=== PATIENT | female | born 1970 | race Caucasian/White ===

== ENCOUNTER 2020-08-03 16:30 | Outpatient (REF) | payer BC, MEDICARE, SELFPAY | END 2020-08-03 16:31 | disposition home or self-care (01) | LOC: HO.HOSX 16:30 | PROVIDERS: Visit Provider Orthopaedic Surgery | DX: Z13.89 Encounter for screening for other disorder (principal) ==

== ENCOUNTER 2020-08-04 09:56 | Outpatient (REF) | payer BC, MEDICARE, OTHER, SELFPAY ==
--- NOTE | ~2020-08-04 | XR_ITS ---
EXAMINATION: XR HAND, RIGHT CLINICAL INFORMATION: Pain COMPARISON: Right hand x-rays October 24, 2018 TECHNIQUE: PA, lateral, and oblique views of the right hand in addition to 3 dedicated views of the right thumb. FINDINGS: Visualized portion of the distal radius and ulna demonstrate no fracture. Carpal rows are well aligned. Again appreciated are moderate degenerative changes of the first carpal metacarpal joint. There is slight lateral subluxation of the first metacarpal. There has been interval development of a few erosions involving the first carpal metacarpal joint with likely subtle erosion involving the base of the second metacarpal. MCP and IP joints are relatively well-maintained diffusely. XR/XR hand RT min 3V IMPRESSION: Interval worsening in moderate degenerative changes of the first carpal metacarpal joint.
== END 2020-08-04 09:57 | disposition home or self-care (01) ==
LOC: HO.HOSX 09:56
PROVIDERS: PCP Internal Medicine; Visit Provider Orthopaedic Surgery
DX: M79.641 Pain in right hand (principal); M18.11 Unilateral primary osteoarthritis of first carpometacarpal joint, right hand
CPT/HCPCS: 20600; 73130; J1020

== ENCOUNTER → 2020-11-02 12:25 | Outpatient (BNVA) | payer BC, MEDICARE, SELFPAY | PROVIDERS: Visit Provider Physician Assistant | DX: M18.11 Unilateral primary osteoarthritis of first carpometacarpal joint, right hand (principal) | CPT/HCPCS: 99212 ==

== ENCOUNTER → 2020-12-23 09:42 | Outpatient (BNVA) | payer BC, MEDICARE, SELFPAY | PROVIDERS: Visit Provider Orthopaedic Surgery | DX: M18.11 Unilateral primary osteoarthritis of first carpometacarpal joint, right hand (principal) | CPT/HCPCS: 99212 ==

== ENCOUNTER 2021-01-14 05:59 | Day surgery (SDC) | payer BC, MEDICARE, SELFPAY ==
[2021-01-08 10:07] VITALS: BMI 24.9
--- NOTE | 2021-01-13 12:42 | P.CONAN_ITS ---
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 (Acute) Leg cramps (Acute) Keratoderma (Acute) Fibromyalgia (Acute) PCOS (polycystic ovarian syndrome) (Acute) Migraine (Acute) Female stress incontinence (Acute) Bipolar disorder (Acute) Acquired hypothyroidism (Acute) Dyslipidemia (Acute) Past Medical History Medical History Acquired hypothyroidism Alcoholism Bilateral finger arthralgia Bipolar disorder 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 Daughter No problems noted. Surgical History Surgical History H/O gastric bypass History of abdominal surgery History of section History of esophagogastroduodenoscopy (EGD) History of mammogram History of pubovaginal sling History of tubal ligation Social History Social History Alcohol intake: never Advance Directives Information Provided: No Advance Directives on File: No Current occupational status: disabled Current occupation: rt handed Meds Allergies Allergy/AdvReac Type Severity Reaction Status Date / Time No Known Allergies Allergy Verified 01/14/21 06:15 [No Known Allergies*] Home Medications Medication Instructions Recorded Confirmed Last Taken Type clonazepam 0.5 mg tablet 0.5 mg PO BEDTIME PRN tab 04/16/20 07/15/20 Unknown History clonidine HCl 0.1 mg tablet 0.1 mg PO BID PRN 04/16/20 07/15/20 Unknown History dextroamphetamine-amphetamine 30 1 tab PO TID 04/16/20 07/15/20 Unknown History mg tablet escitalopram oxalate 20 mg tablet 20 mg PO DAILY 04/16/20 07/15/20 01/14/21 05:00 History hydroxyzine pamoate 50 mg capsule 50 mg PO TID PRN 04/16/20 07/15/20 Unknown History lithium carbonate 300 mg 300 mg PO .COMPLEX PRN tab 07/15/20 07/15/20 Unknown History tablet,extended release Exam Exam Date and Time: January 13, 2021 1242 Height,Weight and Vital Signs: Height 5 ft 4 in Weight 65.771 kg Airway Adult Head Mouth w/Numbe Teeth: 1. loose 2. 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 Daughter No problems noted. Family history of problems with anesthesia: No Surgical History Surgical History H/O gastric bypass History of abdominal surgery History of section History of esophagogastroduodenoscopy (EGD) History of mammogram History of pubovaginal sling History of tubal ligation History of Problems with Anesthesia: No Social History Social History Alcohol intake: never Advance Directives Information Provided: No Advance Directives on File: No Current occupational status: disabled Current occupation: rt handed Meds Allergies Allergy/AdvReac Type Severity Reaction Status Date / Time No Known Allergies Allergy Verified 01/14/21 06:15 [No Known Allergies*] Home Medications Medication Instructions Recorded Confirmed Last Taken Type clonazepam 0.5 mg tablet 0.5 mg PO BEDTIME PRN tab 04/16/20 07/15/20 Unknown History clonidine HCl 0.1 mg tablet 0.1 mg PO BID PRN 04/16/20 07/15/20 Unknown History dextroamphetamine-amphetamine 30 1 tab PO TID 04/16/20 07/15/20 Unknown History mg tablet escitalopram oxalate 20 mg tablet 20 mg PO DAILY 04/16/20 07/15/20 01/14/21 05: 00 History hydroxyzine pamoate 50 mg capsule 50 mg PO TID PRN 04/16/20 07/15/20 Unknown History lithium carbonate 300 mg 300 mg PO .COMPLEX PRN tab 07/15/20 07/15/20 Unknown History tablet,extended release Exam Airway Mallampati Class: I TM Dist: >3cm Neck ROM: Full Adult Head Mouth w/Numbe Teeth: 1. loose 2. loose Loose/Missing/Broken Teeth: Yes (poor dentition, ) Assessment and Plan Assessment Anesthesia Assessment: Anesthesia Plan Discussed Final Anesthetic Review Family History of Problems with Anesthesia: No History of Problems with Anesthesia: No NPO: Yes ASA Class: II Final Preanesthetic Review: No Changes in Pt Med Stat, Meds/Allgs Chart Reviewed, Consent Obtained/Reviewed and Anes Risks/Benef Reviewed Patient Risk: Low Procedure Risk: Low Anesthetic Plan Anesthetic Plan: GA Disposition: Standard PACU
[2021-01-14] VITALS (7 sets, daily range): BP systolic 121–141; BP diastolic 58–81; PULSE 73–94; RESP 16–20; TEMP 36.6; O2SAT 95–100
--- NOTE | ~2021-01-14 | FL_ITS ---
EXAMINATION: XR FLUOROSCOPY WITH IMAGES CLINICAL INFORMATION: Arthroplasty basal joint of thumb. COMPARISON: Previous x-ray of the right hand July 2020 TECHNIQUE: Fluoroscopy performed by Dr. Rivka Skaggs Fluoroscopy time: 21 seconds DAP: [id number] uGycm2 Images: 4 FINDINGS: Images demonstrate 2 K-wires across the 1st NURSING HOME joint of the right hand and osteotomy. FL/FL guidance in OR IMPRESSION: Fluoroscopic guidance for arthroplasty of the 1st NURSING HOME joint of the right hand.
[2021-01-14] MEDS: Lactated Ringers 1,000 ML 100 ML IVCONT (06:34)
--- NOTE | 2021-01-14 07:48 | MHC.SHP ---
Pre-Procedural Eval Section A Date of Service: 01/14/21 The patient is an INPATIENT: No Changes since office visit: No Cold of Flu in the past 2 weeks, No New Medical Problems, No Changes in Medication and No Patient answered all questions The History & Physical has been completed within 30 days and I have reviewed it.: Yes Section B Chief Complaint: osteoarthritis Allergies: Allergies Allergy/AdvReac Type Severity Reaction Status Date / Time No Known Allergies Allergy Verified 01/14/21 06:15 [No Known Allergies*] Plan I have reviewed the history and physical and performed a pertinent physical examination on my patient. No changes have occurred unless specified.
--- NOTE | 2021-01-14 07:49 | P.OP_ITS ---
Operative Note Operative Note Date of Service: 01/14/21 Narrative: Operative Note Narrative: Preop diagnosis: 1. Right basal joint osteoarthritis Postop diagnosis: Same Procedure: 1. Right basal joint arthroplasty with rashid trapezii ectomy and ligament reconstruction tendon interposition with a slip of APL tendon Surgeon: Rivka Skaggs MD Anesthesia: Mac plus regional block Findings: Right basal joint osteoarthritis Implants: 0.045 K-wires x2 Tourniquet time: 90 minutes EBL: 5.0 ml Specimen: None Drains: None Complications: None Disposition: Brought to the recovery room in stable condition Plan: Follow-up in 10-14 days for wound check, suture removal and to postop radiographs Place into a short-arm thumb spica cast. Anticipate K-wire removal at 4 weeks postop with same-day appointment for OT hand therapy for a custom thermoplastic hand based thumb spica splint and hand therapy Indications: The patient is 50 years old with right basal joint osteoarthritis. The risks and benefits of operative treatment, including but not limited to risk of damage to blood vessels, nerves, tendons, infection, recurrence, persistent pain or numbness, incomplete resolution of preoperative symptoms, or need for further surgery were discussed with the patient and they wished to proceed with surgery. Procedure: Once consent was obtained patient was brought back to the operating suite and placed in the operating table in a supine position. A regional block was performed by the anesthesia team. Perioperative antibiotics and anesthesia was administered by the anesthesia team. A tourniquet was applied to the proximal aspect of the right upper extremity and the limb was prepped and draped in a standard surgical fashion. The limb was elevated exsanguinated with Esmarch bandage and the tourniquet inflated to 250 mm of mercury for a total tourniquet time of 90 minutes. A 4 cm longitudinal incision was made over the dorsal aspect of the basal joint of the right thumb extending proximally over the 1st dorsal compartment. The i ncision was made through the skin to the subcutaneous tissues using a 15. Blade. I dissected down to the level of the abductor pollicis longus and extensor problems this brevis tendons with care being taken to protect the branches of the superficial radial nerve. The basal joint was entered through the interval between the APL and EPB tendons, and the base of the 1st metacarpal and the distal aspect of the trapezium were exposed. Two baby Bhupinder retractorswere placed around the base of the 1st metacarpal and a bone saw was used to make a transverse cut through the base of the 1st metacarpal removing sliver of bone. The distal aspect of the trapezium was then similarly mobilized, 2 baby Bhupinder retractors placed, and the distal half of the trapezium removed after a transverse cut was made using a small bone saw. The FCR tendon was seen passing through the floor of the interval. At this point my attention was turned to the 1st dorsal compartment. It was exposed over the radial styloid. A slip of the abductor pollicis longus tendon was selected and cut proximally and withdrawn back to the interval and its attachment at the base of the 1st metacarpal. It was then secured to the base of the interval and the FCR tendon using some 3-0 Ethibond suture. An anchovy was then created from the remaining APL tendon and placed into the interval. It was secured using 3-0 Ethibond sutu re material. Two 0.045 K-wires were then placed from distal to proximal across the interval maintaining the space in the interval. Once satisfied with their position on fluoroscopic images they were cut, bent and had pin caps applied. At this point the wound was again irrigated with normal saline. The interval was closed using 3-0 Ethibond and 4-0 Vicryl suture. At this point the tourniquet was deflated and hemostasis obtained with a brief period of local pressure and bipolar electrocautery. The wound was copiously irrigated with normal saline. The subcutaneous layer was closed with 4-0 Vicryl suture, and the skin edges were reapproximated with 5-0 Prolene suture. The wound was infiltrated with some 1% lidocaine with epinephrine for postop pain control and a sterile dressing and thumb spica splint were applied. The patient appears to have tolerated the procedure well and with no complications. All digits were well vascularized at the conclusion of the case.
== END 2021-01-14 11:56 | disposition home or self-care (01) ==
PROVIDERS: PCP Internal Medicine; Visit Provider Orthopaedic Surgery
PROC: (CPT 25447; principal; 2021-01-14 07:30)
DX: M18.11 Unilateral primary osteoarthritis of first carpometacarpal joint, right hand (principal); Z87.820 Personal history of traumatic brain injury
CPT/HCPCS: 25447; J0690; J1100; J2250; J2405; J3010

== ENCOUNTER 2021-01-26 09:15 | Outpatient (REF) | payer BC, MEDICARE, SELFPAY ==
--- NOTE | ~2021-01-26 | XR_ITS ---
EXAMINATION: XR HAND, RIGHT CLINICAL INFORMATION: Pain right hand COMPARISON: None TECHNIQUE: PA, lateral, and oblique views of the right hand. FINDINGS: There are 2 pins traversing the first carpometacarpal joint space following surgery for fusion. No additional bony abnormality seen. XR/XR hand RT min 3V IMPRESSION: Postsurgical changes first carpometacarpal joint with dissection and stabilization of joint with with 2 pins.
== END 2021-01-26 09:16 | disposition home or self-care (01) ==
LOC: HO.HOSX 09:15
PROVIDERS: PCP Internal Medicine; Visit Provider Orthopaedic Surgery
DX: M18.11 Unilateral primary osteoarthritis of first carpometacarpal joint, right hand (principal)
CPT/HCPCS: 73130

== ENCOUNTER 2021-02-09 09:55 | Outpatient (REF) | payer BC, MEDICARE, SELFPAY ==
--- NOTE | ~2021-02-09 | XR_ITS ---
EXAMINATION: XR HAND, RIGHT CLINICAL INFORMATION: Pain in the right hand COMPARISON: 01/26/2021 TECHNIQUE: PA, lateral, and oblique views of the right hand. FINDINGS: There is no acute fracture or dislocation. Previous K wires have been removed at the region of the first carpometacarpal joint. There is irregularity of the articular surfaces of the base of the first metacarpal and of the trapezium. There is a gap between the bones. Overall this is likely postoperative in nature. Remaining joint spaces are maintained. The soft tissues are unremarkable. XR/XR hand RT min 3V IMPRESSION: Post intervention changes at the first carpometacarpal joint.
== END 2021-02-09 09:56 | disposition home or self-care (01) ==
LOC: HO.HOSX 09:55
PROVIDERS: Visit Provider Orthopaedic Surgery
DX: L03.011 Cellulitis of right finger (principal); M18.11 Unilateral primary osteoarthritis of first carpometacarpal joint, right hand
CPT/HCPCS: 73130

== ENCOUNTER → 2021-02-16 11:32 | Outpatient (BNVA) | payer BC, MEDICARE, OTHER, SELFPAY | PROVIDERS: Visit Provider Orthopaedic Surgery ==

== ENCOUNTER 2021-03-15 11:00 | Outpatient (RCR) | payer BC, MEDICARE, OTHER, SELFPAY ==
--- NOTE | 2021-02-11 08:10 | MHC.OT.OEV ---
[address] [phone] F: [phone] Occupational Therapy Evaluation Diagnosis: ARTHRITIS OF FIRST CARPOMETACARPAL R HAND Date of Onset: 02/09/20 Date of Surgery: 01/14/21 Attending Provider: Rivka Garza Prescribed Treatment: EVAL AND TREAT, FABRICATE CUSTOM THERMOPLASTIC THUMB SPICA SPLINT IP FREE MD Follow Up Appointment: 03/23/21 History of Current Condition: UNDERWENT Right basal joint arthroplasty with rashid trapezii ectomy and ligament reconstruction tendon interposition with a slip of APL tendon WITH DR GARZA ON 01/14/21 DUE TO ARTHRITIS OF THE CMC JOINT OF THE RIGHT THUMB. K-WIRE REMOVED 01/26/21. CAST REMOVED 02/09/21. 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 PREVIOUSL[place] [employer] [place]. HOBBIES INCLUDE: GARDENING, READING, PLAYING WITH THREE DOGS Living Situation, Family and/or Social Support: LIVES WITH S/O, THREE DOGS Current Level of Function and Occupation Self Care, Employment, Leisure: DIFFICULTIES IN ADLs AND IADLs. S/O ASSISTING WITH MOST IADLs AND SOME DRESSING TASKS. USING NON-DOMINANT HAND FOR TOILETING HYGIENE. Sleep: HX OF SLEEP DIFFICULTIES PRIOR TO SURGERY; DENIES CHANGE IN SLEEPING PATTERN Driving: REPORTS USING L HAND MOSTLY; HAS TURN DIAL FOR SHIFTING INTO GEAR Vision: WFL Balance: WFL Pain Assessment Pain Score: 1-4/10 Pain Scale Used: Numeric (0 - 10) Pain Location and Description: R THUMB, SURGICAL SITE 1/10 AT REST 4/10 WITH USE Aggravating Factors: BUMPING HAND Alleviating Factors: IBUPROPHEN Skin and Soft Tissue Assessment Skin and Soft Tissue: Nail Changes Redness Swelling Scar Tissue Comments: SURGICAL INCISION IS HEALING, DRY. REPORTS NEW NAIL INFECTION WITH SOME REDNESS AT CUTICAL (MD ORDERED ANITIBIOTIC IN OFFICE) Sensory Assessment Temperature: Light Touch: WFL Proprioception: Vibration: Comments: SMALL AREA OF NUMBNESS FROM MCP TO 1ST METACARPAL ON RADIAL ASPECT OF THUMB Edema Assessment Upper Extremity: Right Impaired Lower Extremity: Comments: MILD R THUMB/ THENAR EDEMA CIRCUMFERNCE OF WRIST, DISTAL TO U.S.: R 16.7 CM, L 15.9 CM CIRCUMFERENCE OF IP OF D1: RIGHT 6.8 CM, LEFT 6.6 CM Dexterity Assessment Dexterity: Right Impaired Comments: FUNCTIONAL DEXTERITY TEST: RIGHT 40 SECONDS (MODERATELY FUNCTIONAL), LEFT 24 SECONDS Special Tests Comments: AROM(PROM) Strength Wrist Flexion: R 48, L 68 Extension: R 70, L 70 Ulnar Deviation: R 24, L 54 Radial Deviation: R 8, L 10 Comments: Flexion: Extension: Ulnar Deviation: Radial Deviation: Comments: Thumb Thumb CMC Flexion: Thumb MCP Flexion: R 20, L 60 Thumb IP Flexion: R 28, L 72 Radial Abduction: R 44 Palmar Abduction: R 40 [place] (Kapandji 0-10): Comments: OPPOSITION DEFERRED Digits Index MCP: PIP: DIP: Long MCP: PIP: DIP: Ring MCP: PIP: DIP: Small MCP: PIP: DIP: Comments: Gross Grasp: L 70 Lateral Pinch: L 16 Two-Point Pinch: L 14 Three-Jaw Alex: L 15 Comments: RIGHT DEFERRED Patient Education Primary Language: Com[place] [employer]itor [employer] Required: No Current Knowledge: Understands information with skills for self-management Teaching Method: Demonstration Handouts Verbal Education Needs Identified on Evaluation: ADL's Disease Information Equipment Use Exercise Pain Safety How did patient/family demonstrate learning? Patient demonstrates Patient verbalizes Barriers to Learning: None Readiness for Learning: Accepting Who was educated? Patient Comments: Plan of Care Assessment: BRITT IS [age] WEE[age], F[age] DAYS S/P BASAL JOINT ARTHROPLASTY (DOS 01/14/21). SHE HAD HER CAST REMOVED IN THE ORTHOPEDIC OFFICE THIS AFTERNOON WITH ORDERS FOR OT TO EVALUATE, TREAT AND FABRICATE A CUSTOM THUMB SPICA SPLINT. Pt REPORTS LOW PAIN AND EMERGING ABILITY TO PARTICIPATE IN BADLs WITH DOMINANT RIGHT UE. SHE HAS A SUPPORTIVE S/O AT HOME WHO HAS BEEN ASSISTING WITH IADLs. A 64% LIMITATION IS REPORTED PER THE QUICK DASH ASSESSMENT. ONGOING SKILLED OT IS WARRANTED TO ACHIEVE MAXIMUM FUNCTIONAL LEVEL AND IMPROVE QOL. 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 >30 POUNDS MIN IMPAIRMENT PER THE FUNCTIONAL DEXTERITY TEST IN R HAND INCREASE R WRIST FLEXION TO 60 DEGREES Frequency and Duration: The patient will be seen 2X/WEEK FOR 8 WEEKS Treatment Plan: Therapeutic Exercise Therapeutic Activity Home Exercise Program Splinting Neuro Re-ed Patient Education Desensitization/Sensory Re-ed Edema Control ADL Training Ultrasound NMES Iontophoresis Paraffin Fluidotherapy MHP Cold Packs Joint Mobilization Soft Tissue Mobilization Kinesiotaping Other (see comments) Electronically Signed By: DORITA GREENE/Angelo Reviewed/agree with student documentation: N/A Therapist: Please sign and return to therapist, Thank you for your referral.
--- NOTE | 2021-04-05 08:44 | MHC.OT.DC ---
[address] [phone] F: [phone] Occupational Therapy Discharge Note Provider: Rivka Skaggs Diagnosis: ARTHRITIS OF FIRST CARPOMETACARPAL R HAND Date of Surgery: 01/14/21 Date of Evaluation: 02/11/21 Date of Discharge: 04/05/21 Treatments to Date: 6 Cancellations to Date: 1 No Shows to Date: 3 Discharge Status: Patient Elected to Stop Discharge Summary: MS EWING HAS BEEN SEEN FOR OT SERVICES SHE IS POST OP BASAL JOINT ARTHROPLASTY. SHE WAS PROVIDED WITH A CUSTOM ORTHOSIS AND INSTRUCTED ON WEAR/ CARE AND EDUCATED ON POST OP PRECAUTIONS. BRITT HAD BEEN FOLLOWING HER HEP AND GRADUALLY USING HER DOMINANT RIGHT HAND FOR ADLs AND LIGHT IADLs. Pt CONTACTED THE CORE OFFICE AND REQUESTED TO TRANSITION TO A HOME BASED PROGRAM, DISCONTINUING HER OT SERVICES. SHE REPORTS GOOD UNDERSTANDING OF HER HEP AND POST OP PRECAUTIONS. D/C OT SERVICES. Electronically Signed By: SUKHI CARIAS OTR/L Reviewed/agree with student documentation: N/A Therapist: Please Sign and return to therapist, thank you for your referral.
== END 2021-04-05 08:45 | disposition home or self-care (01) ==
LOC: HO.OT 11:00
PROVIDERS: PCP Internal Medicine; Visit Provider Orthopaedic Surgery
DX: M18.11 Unilateral primary osteoarthritis of first carpometacarpal joint, right hand (principal)
CPT/HCPCS: 29130; 97035; 97110; 97140; 97167; 97530; 97760

== ENCOUNTER → 2021-03-23 08:43 | Outpatient (BNVA) | payer BC, MEDICARE, OTHER, SELFPAY | PROVIDERS: PCP Internal Medicine; Visit Provider Orthopaedic Surgery ==

== ENCOUNTER 2021-08-31 11:41 | Outpatient (REF) | payer OTHER, BC, SELFPAY ==
--- NOTE | ~2021-08-31 | MM_ITS ---
EXAMINATION: MM SCREENING DIGITAL BREAST TOMOSYNTHESIS, BILATERAL CLINICAL INFORMATION: Screening. Asymptomatic. The lifetime risk of breast cancer based on the Tyrer-Cuzick Model is 13%. COMPARISON: Mammography: 04/01/2019, 03/10/2017, 04/13/2015 TECHNIQUE: Digital breast tomosynthesis is performed in both the craniocaudal and mediolateral oblique views along with computer-aided detection (CAD). Synthesized 2D images are generated from the tomosynthesis. FINDINGS: There are scattered areas of fibroglandular density (ACR BI-RADS breast composition Category b). There are no significant masses, abnormal calcifications, or other abnormalities. No developing density. The axilla are unremarkable. There is a dermal lesion again seen overlying posterior inferior left breast. MM/MM tomosynthesis screening BI IMPRESSION: No mammographic evidence of malignancy. ASSESSMENT: BI-RADS 2: Benign RECOMMENDATION: Routine annual mammography screening. This patient's information was entered into a reminder system with a target due date for their next mammogram.
== END 2021-08-31 11:42 | disposition home or self-care (01) ==
LOC: HO.MAMMO 11:41
PROVIDERS: Visit Provider Internal Medicine
DX: Z12.31 Encounter for screening mammogram for malignant neoplasm of breast (principal)
CPT/HCPCS: 77063; 77067

== ENCOUNTER 2022-09-01 11:49 | Outpatient (REF) | payer OTHER, SELFPAY ==
--- NOTE | ~2022-09-01 | MM_ITS ---
EXAMINATION: MM SCREENING DIGITAL BREAST TOMOSYNTHESIS, BILATERAL CLINICAL INFORMATION: Screening. Asymptomatic. The lifetime risk of breast cancer based on the Tyrer-Cuzick Model is 13%. COMPARISON: Mammography: 08/31/2021, 04/01/2019, 03/10/2017 TECHNIQUE: Digital breast tomosynthesis is performed in both the craniocaudal and mediolateral oblique views along with computer-aided detection (CAD). Synthesized 2D images are generated from the tomosynthesis. FINDINGS: There are scattered areas of fibroglandular density (ACR BI-RADS breast composition Category b). There are no significant masses, abnormal calcifications, or other abnormalities. Parenchymal pattern is similar to prior studies. There is no developing density or architectural abnormality. The axilla and skin contours are unremarkable. No significant changes. MM/MM tomosynthesis screening BI IMPRESSION: No mammographic evidence of malignancy. ASSESSMENT: BI-RADS 1: Negative RECOMMENDATION: Routine annual mammography screening. This patient's information was entered into a reminder system with a target due date for their next mammogram.
== END 2022-09-01 11:50 | disposition home or self-care (01) ==
LOC: HO.MAMMO 11:49
PROVIDERS: PCP Internal Medicine; Visit Provider Internal Medicine
DX: Z12.31 Encounter for screening mammogram for malignant neoplasm of breast (principal)
CPT/HCPCS: 77063; 77067

== ENCOUNTER 2022-10-24 21:59 | Emergency (ER) | payer OTHER, MEDICARE, SELFPAY ==
[2022-10-24 22:12] VITALS: BP 120/80; PULSE 102; O2SAT 98
[2022-10-24 22:30] VITALS: BP 150/85; PULSE 90; RESP 16; TEMP 35.6; O2SAT 97
--- NOTE | 2022-10-24 23:00 | PC.NURSE ---
Pt not at the bedside. Left without being seen. Charge nurse aware.
--- NOTE | 2022-10-24 23:07 | ED_ITS ---
HPI - Alcohol General Chief Complaint: ETOH/Substance Use Stated Complaint: crisis, depression, anxiety, per ems Time Seen by Provider: 10/24/22 22:18 Related Data Home Medications Medication Instructions Recorded Confirmed clonazepam 0.5 mg tablet 0.5 mg PO BEDTIME PRN 04/16/20 07/15/20 clonidine HCl 0.1 mg tablet 0.1 mg PO BID PRN 04/16/20 07/15/20 dextroamphetamine-amphetamine 30 1 tab PO TID 04/16/20 07/15/20 mg tablet escitalopram oxalate 20 mg tablet 20 mg PO DAILY 04/16/20 07/15/20 hydroxyzine pamoate 50 mg capsule 50 mg PO TID PRN 04/16/20 07/15/20 lithium carbonate 300 mg 300 mg PO .COMPLEX PRN 07/15/20 07/15/20 tablet,extended release Previous Rx's Medication Instructions Recorded nystatin-triamcinolone 100,000 1 appl topical BID 10 days #30 05/22/20 unit/g-0.1 % topical cream grams levothyroxine 175 mcg tablet 175 mcg PO DAILY #30 tabs 05/28/20 magnesium oxide 400 mg (241.3 mg 400 mg PO DAILY PRN for cramps #30 08/21/20 magnesium) tablet tabs oxybutynin chloride 5 mg 5 mg PO DAILY 30 days #30 tabs 08/21/20 tablet,extended release 24 hr pregabalin 150 mg capsule 150 mg PO BID #60 caps 10/08/20 sulfamethoxazole 800 1 tab PO BID 10 days #20 tabs 01/26/21 mg-trimethoprim 160 mg tablet (Bactrim DS) amoxicillin 875 mg-potassium 1 tab PO Q12H #14 tabs 02/09/21 clavulanate 125 mg tablet (Augmentin) valacyclovir 1 gram tablet 2,000 mg PO Q12H #4 tabs 05/18/21 Allergies Allergy/AdvReac Type Severity Reaction Status Date / Time No Known Allergies Allergy Verified 02/16/21 11:44 [No Known Allergies*] [facility] Past Medical History Medical History Acquired hypothyroidism Alcoholism Bilateral finger arthralgia Bipolar disorder 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 Daughter No problems noted. Social History Social History Alcohol intake: never Advance Directives: No Advance Directives Information Provided: No Current occupational status: disabled Current occupation: rt handed Physical Exam ED Vital Signs: Vital Signs - 24 hr 10/24/22 22:30 Temperature 96.1 F L Pulse Rate 90 Respiratory Rate 16 Blood Pressure 150/85 H Pulse Oximetry 97 Oxygen Delivery Method Room Air BMI result Body Mass Index 30.0 Discharge Plan Discharge Prescriptions: No Action nystatin-triamcinolone 100,000-0.1 unit/g-% cream 1 appl topical BID 10 Days Qty: 30 0RF levothyroxine 175 mcg tablet 175 mcg PO DAILY Qty: 30 3RF oxybutynin chloride 5 mg tablet extended release 24hr 5 mg PO DAILY 30 Days Qty: 30 2RF Rx Instructions: appt needed for further refills magnesium oxide 400 mg (241.3 mg magnesium) tablet 400 mg PO DAILY PRN (Reason: for cramps) Qty: 30 0RF pregabalin 150 mg capsule 150 mg PO BID Qty: 60 0RF valacyclovir 1 gram tablet 2,000 mg PO Q12H Qty: 4 3RF escitalopram oxalate 20 mg tablet 20 mg PO DAILY dextroamphetamine-amphetamine 30 mg tablet 1 tab PO TID hydroxyzine pamoate 50 mg capsule 50 mg PO TID PRN clonidine HCl 0.1 mg tablet 0.1 mg PO BID PRN clonazepam 0.5 mg tablet 0.5 mg PO BEDTIME PRN lithium carbonate 300 mg tablet extended release 300 mg PO .COMPLEX PRN Rx Instructions: 1 tab at 7am, 12n, 3pm, 6pm and 10pm sulfamethoxazole-trimethoprim [Bactrim DS] 800-160 mg tablet 1 tab PO BID 10 Days Qty: 20 0RF amoxicillin-pot clavulanate [Augmentin] 875-125 mg tablet 1 tab PO Q12H Qty: 14 0RF
== END 2022-10-24 23:00 | disposition left against medical advice (07) ==
PROVIDERS: Emergency Provider Emergency Medicine
DX: F32.A Depression, unspecified (principal); F41.9 Anxiety disorder, unspecified; Z87.820 Personal history of traumatic brain injury
CPT/HCPCS: 99281; 99282

== ENCOUNTER 2022-11-26 20:11 | Emergency (ER) | payer OTHER, SELFPAY ==
--- NOTE | ~2022-11-26 | XR_ITS ---
EXAMINATION: XR HAND, RIGHT CLINICAL INFORMATION: Question fracture COMPARISON: 02/09/2021 TECHNIQUE: PA, lateral, and oblique views of the right hand. FINDINGS: There is a fracture through neck of the fifth metacarpal with mild following volar angulation of the distal fragment and some adjacent soft tissue swelling. No additional acute fracture is seen. In comparison to the prior examination there is a flattened appearance of the trapezium, suggesting sequelae of avascular necrosis. There is chronic appearing cortical irregularity at the base of the first metacarpal and adjacent base of the second metacarpal, which may reflect a combination of arthritic and postoperative changes. XR/XR hand RT 2V IMPRESSION: 1. Mildly displaced fracture of the fifth metacarpal neck. 2. Chronic appearing changes near the first carpometacarpal joint as described above, including a flattened appearance of the trapezium which may reflect sequelae of avascular necrosis.
[2022-11-26 20:18] VITALS: BP 137/65; BP 170/80; PULSE 108; PULSE 95; RESP 18; TEMP 36.7; O2SAT 97; O2SAT 98; BMI 22.3
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
== END 2022-11-26 23:10 | disposition home or self-care (01) ==
PROVIDERS: Emergency Provider Internal Medicine; PCP Internal Medicine
DX: S62.336A Displaced fracture of neck of fifth metacarpal bone, right hand, initial encounter for closed fracture (principal); W22.09XA Striking against other stationary object, initial encounter; Y93.9 Activity, unspecified; Y92.9 Unspecified place or not applicable; Y99.9 Unspecified external cause status
CPT/HCPCS: 29125; 73120; 99282; 99283

== ENCOUNTER 2022-11-29 04:56 | Outpatient (REF) | payer OTHER, SELFPAY ==
--- NOTE | ~2022-11-29 | XR_ITS ---
EXAMINATION: XR HAND, RIGHT CLINICAL INFORMATION: Right hand pain COMPARISON: November 1922 TECHNIQUE: PA, lateral, and oblique views of the right hand. FINDINGS: There is no interval change in appearance of boxer's fracture involving 6 metacarpal bone with angulation. Soft tissues are unremarkable. There is flattening of the trapezium as a sequela of avascular necrosis and progress seen with February 2021. There is irregularity of first metacarpal bone with wide gap between bones. Findings are stable. XR/XR hand RT min 3V IMPRESSION: No interval change in appearance of boxer's fracture of fifth metacarpal bone and chronic appearing changes in the first carpometacarpal joint with osteonecrosis of trapezius.
== END 2022-11-29 04:57 | disposition home or self-care (01) ==
LOC: HO.HOSX 04:56
PROVIDERS: Visit Provider Orthopaedic Surgery
DX: S62.336A Displaced fracture of neck of fifth metacarpal bone, right hand, initial encounter for closed fracture (principal)
CPT/HCPCS: 73130; 99212

== ENCOUNTER 2022-11-29 15:13 | Outpatient (AMB) | payer OTHER, SELFPAY ==
--- NOTE | 2022-11-29 15:40 | A.OFFVIS_ITS ---
Intake Intake Visit Reasons: N/P Fracture of the right 5th metacarpal 11/26/22 Intake Note: Eve is a 52 year old right hand dominant female presents today as a new patient for evaluation of her right hand fracture. On Monday she reports that he punched a wall on Monday11/29/22, she was seen at [facility] ED the date of injury. Currently she complains of pain in the ulnar side of the hand, this pain does occasionally radiate up the arm. She has significant swelling of the hand but denies numbness and tingling. Allergies No Known Allergies [No Known Allergies*] Allergy (Verified 02/16/21 11:44) HPI N/P Fracture of the right 5th metacarpal 11/26/22 HPI Details Eve is a 52 year old right hand dominant woman who presents with a right 5th metacarpal fracture. She says she punched a wall on 11/26/22, and was seen in the ED on the same day where she was placed in an ulnar gutter splint. She says she is doing okay today, she has some pain in her finger but this is tolerable. She denies any numbness or tingling. She is currently not working and is on disability. She has a hx of right basal joint arthroplasty by me in 2020, which she says went very well and she denies any pain. 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 Daughter No problems noted. Social History (Updated 11/29/22 @ 15:44 by Jeannette Mckeon CMA) Alcohol intake: never Patient Tobacco Use Status: Current everyday Tobacco user Cigarette Packs Per Day: 0.5 Current occupational status: disabled Current occupation: rt handed Review of Systems Const All systems reviewed & are unremarkable except as noted in HPI and below Physical Exam Const General: no acute distress and alert Orientation/consciousness: patient oriented x3 Neuro General: patient oriented x3 Extrem Other: Evaluation of Right Upper Extremity: The patient is alert, oriented, and in no acute distress Neuro: Median, Ulnar, Radial nerves motor and sensory intact and sensation is normal to the tips of all digits Vascular: Cap refill brisk ROM: With encouragement she could bring her small finger MCP joint to ~70-80 degrees flexion and back into full extension No mal-rotation Mild angular deformity Ecchymosis & swelling No evidence of open injury Tender over the 5th metacarpal neck No tenderness about the basal joint Radiographs: 3 views of the right hand, with attention to the small finger, were taken and viewed by me today in clinic. They show a right 5th metacarpal neck fracture with about 40 degrees of apex dorsal angulation and some mild volar translation.. Psych Appearance: grossly normal Affect: normal affect Attitude: cooperative Office Procedures Fracture Care Details: Fracture [id number] Fracture Billing Code: Fracture Billing Code Assessment & Plan Assessment & Plan (1) Fracture of neck of fifth metacarpal bone of right hand: Code(s): S62.336A - Displaced fracture of neck of fifth metacarpal bone, right hand, initial encounter for closed fracture Plan Assessment & Plan: 1. Right 5th metacarpal neck fracture After punching a wall, DOI: 11/26/22 Splinted in ED on 11/26/22 I educated her about this condition I discussed operative and non-operative treatment options I believe we can manage this non-operatively She was fitted for a velcro wrist splint, and her small and ring fingers were phil-taped to allow for active range of motion. I showed her exercises to include active MCP flexion. I discussed activity modification, she is to avoid any impact activities, activities prone to falling, or gripping activities for the next 3 weeks She will follow up in 3 weeks, with X-rays 3V R SF Scribed for Rivka Skaggs MD by Oliver Friedman, medical center representative, on 11/29/22 at 4:15 PM, EST. Orders: Orders XR hand RT min 3V Today M79.641 - Pain in right hand Coding Level of Care Code Est Pt Level 3 (97479) Diagnoses Fracture of neck of fifth metacarpal bone of right hand S62.336A CPT Codes Fracture Care - Fracture Billing Code: Fracture Billing Code ([id number])
== END 2022-11-29 16:21 | disposition home or self-care (01) ==
PROVIDERS: PCP Internal Medicine; Visit Provider Orthopaedic Surgery
DX: S62.336A Displaced fracture of neck of fifth metacarpal bone, right hand, initial encounter for closed fracture (principal)
CPT/HCPCS: 99213

== ENCOUNTER 2022-12-20 08:31 | Outpatient (REF) | payer OTHER, SELFPAY | END 2022-12-20 08:32 | disposition home or self-care (01) | LOC: HO.HOSX 08:31 | PROVIDERS: Visit Provider Orthopaedic Surgery | DX: Z13.89 Encounter for screening for other disorder (principal) ==

== ENCOUNTER 2023-09-06 11:45 | Outpatient (REF) | payer OTHER, SELFPAY | END 2023-09-06 11:46 | disposition home or self-care (01) | LOC: HO.MAMMO 11:45 | PROVIDERS: PCP Internal Medicine; Visit Provider Hospitalist | DX: Z12.31 Encounter for screening mammogram for malignant neoplasm of breast (principal) | CPT/HCPCS: 77063; 77067 ==

== ENCOUNTER → 2023-09-06 12:00 | Outpatient (BNV) | payer OTHER, SELFPAY | PROVIDERS: PCP Internal Medicine; Visit Provider Radiology Diagnostic Radiology | DX: Z12.31 Encounter for screening mammogram for malignant neoplasm of breast (principal) | CPT/HCPCS: 77063; 77067 ==